=== PATIENT | male | born 2000 | race Caucasian/White ===

== ENCOUNTER 2023-03-20 18:54 | Emergency (ER) | payer OTHER ==
[~2023-03-20] VITALS: Ht 185.4 cm; Wt 95.3 kg
[2023-03-20 19:47] VITALS: BP_SYST 111
--- NOTE | 2023-03-20 19:56 | NUR ---
PATIENT PRESENTS WITH A TWO WEEK COUGH, WHEEZING, SORE THROAT, LEFT UPPER ABDOMEN PAIN WHEN COUGHING, MD CAME TO TRIAGE ROOM TO DO ASSESSMENT, HX OF CHILDHOOD ASTHMA
[2023-03-20] MEDS ORDERED: IBUP-1969 PO (20:13)
[2023-03-20] MEDS ORDERED: PHEDM120 PO (20:13)
--- NOTE | 2023-03-20 20:21 | NUR ---
ER at bedside examining patient.
[2023-03-20] MEDS ORDERED: ALBMDI INH (20:43)
[2023-03-20 23:22] VITALS: BP_SYST 111
--- NOTE | 2023-03-20 23:25 | NUR ---
Patient given written and verbal discharge instructions and verbalizes understanding. ER MD discussed with patient the results and treatment provided. Patient in stable condition. ID arm band removed. Rx of IBUPROFEN, PHENERGAN-DM given. Patient educated on pain management and to follow up with PMD. Pain Scale 0. Opportunity for questions provided and answered. Medication side effect fact sheet provided.
== END 2023-03-20 23:22 | disposition home or self-care (01) ==
LOC: SED 18:54
DX: J40 Bronchitis, not specified as acute or chronic (principal); R09.1 Pleurisy; R05.9 Cough, unspecified; R06.02 Shortness of breath; R07.89 Other chest pain; Z88.1 Allergy status to other antibiotic agents; Z79.899 Other long term (current) drug therapy
CPT/HCPCS: 71045; 99283